=== PATIENT | male | born 1980 | race American Indian/Alaskan Native ===

== ENCOUNTER 2022-01-31 18:01 | Emergency (ER) | payer SELFPAY ==
[2022-01-31] MEDS ORDERED: cloNIDine 0.1 MG TAB PO ONE (18:29)
[2022-01-31] MEDS ORDERED: hydrALAZINE 20 MG/1 ML INJ IV ONE (22:20)
--- NOTE | 2022-02-01 01:41 | Emergency Department Report ---
ED ENT HPI - General Chief complaint: Nosebleed Stated complaint: NOSE BLEED/HTN Time Seen by Provider: 01/31/22 22:14 Source: patient, EMS Mode of arrival: Stretcher Limitations: No Limitations - History of Present Illness Initial comments: 41-year-old black male with a past medical history of hypertension and morbid obesity presents to the emergency department for evaluation of a nosebleed. He states that he sneezed really hard twice then started to have a nosebleed around 250 today. He states that his nose bled intermittently on 06/20/1929 and then it stopped. He states that even after the nosebleed he had a headache so he decided come to the emergency department for further evaluation. He denies chest pain, shortness of breath, nausea, vomiting, dizziness, and diaphoresis. MD complaint: epistaxis -: Sudden Location: other (Headache) Severity scale (0 -10): 4 Quality: aching Consistency: now resolved Associated Symptoms: denies: fever, cough, gum swelling, toothache, pain with swallowing, sore throat, tinnitus, hearing loss, discharge from ear, rhinorrhea - Related Data Allergies Allergy/AdvReac Type Severity Reaction Status Date / Time No Known Allergies Allergy Unverified 01/31/22 18:21 ED Dental HPI - General Chief complaint: Nosebleed Stated complaint: NOSE BLEED/HTN Time Seen by Provider: 01/31/22 22:14 Source: patient, EMS Mode of arrival: Stretcher Limitations: No Limitations - Related Data Allergies Allergy/AdvReac Type Severity Reaction Status Date / Time No Known Allergies Allergy Unverified 01/31/22 18:21 ED Review of Systems ROS: Stated complaint: NOSE BLEED/HTN Other details as noted in HPI Comment: All other systems reviewed and negative Constitutional: denies: chills, fever, malaise, weakness ENT: denies: congestion Respiratory: denies: shortness of breath Cardiovascular: denies: chest pain, palpitations, dyspnea on exertion, orthopnea, edema, syncope, paroxysmal nocturnal dyspnea Gastrointestinal: denies: abdominal pain, nausea, vomiting Musculoskeletal: denies: back pain Neurological: headache. denies: weakness ED Past Medical Hx - Past Medical History Hx Hypertension: Yes Hx Diabetes: Yes - Surgical History Additional Surgical History: neck, L foot, L leg ED Physical Exam - General Limitations: No Limitations General appearance: alert, in no apparent distress - Head Head exam: Present: atraumatic, normocephalic - Eye Eye exam: Present: normal appearance. Absent: conjunctival injection, periorbital swelling, periorbital tenderness - ENT ENT exam: Present: normal orophraynx, mucous membranes moist, other (No epistaxis noted.). Absent: normal exam (Bilateral nasal mucosal edema) - Neck Neck exam: Present: normal inspection. Absent: tenderness, lymphadenopathy - Respiratory Respiratory exam: Present: normal lung sounds bilaterally. Absent: respiratory distress, wheezes, rales, rhonchi, stridor, chest wall tenderness - Cardiovascular Cardiovascular Exam: Present: regular rate, normal heart sounds - GI/Abdominal GI/Abdominal exam: Present: soft, normal bowel sounds. Absent: distended, tenderness, guarding, rebound, rigid - Extremities Exam Extremities exam: Present: normal inspection, full ROM, normal capillary refill. Absent: tenderness, pedal edema, joint swelling, calf tenderness - Back Exam Back exam: Present: normal inspection. Absent: CVA tenderness (R), CVA tenderness (L) - Neurological Exam Neurological exam: Present: alert, CN II-XII intact, normal gait, reflexes normal. Absent: motor sensory deficit - Psychiatric Psychiatric exam: Present: normal affect, normal mood - Skin Skin exam: Present: warm, dry, intact, normal color ED Course Vital Signs 01/31/22 01/31/22 01/31/22 18:09 18:36 22:09 Temperature 97.7 F Pulse Rate 99 H 88 83 Respiratory 18 12 Rate Blood Pressure 210/110 Blood Pressure 226/111 222/115 [Left] O2 Sat by Pulse 97 100 Oximetry 01/31/22 02/01/22 02/01/22 23:22 00:15 00:33 Temperature Pulse Rate 94 H Respiratory 14 Rate Blood Pressure 222/115 191/102 Blood Pressure 191/102 [Left] O2 Sat by Pulse 99 Oximetry 02/01/22 01:21 Temperature Pulse Rate 84 Respiratory 14 Rate Blood Pressure Blood Pressure 196/110 [Left] O2 Sat by Pulse 100 Oximetry - Reevaluation(s) Reevaluation #1: 02/01/22 01:40 Blood pressure only minimally improved. Nosebleed and headache resolved. Patient states that he takes lisinopril and HCTZ at home but does not check his blood pressure. He states that he plans to follow-up with his primary care provider on Wednesday for further evaluation and management of elevated BP and is ready to be discharged. ED Medical Decision Making - Medical Decision Making 41-year-old black male with a past medical history of hypertension and morbid obesity presents to the emergency department for evaluation of a nosebleed. He states that he sneezed really hard twice then started to have a nosebleed around 250 today. He states that his nose bled intermittently on 06/20/1929 and then it stopped. He states that even after the nosebleed he had a headache so he decided come to the emergency department for further evaluation. He denies chest pain, shortness of breath, nausea, vomiting, dizziness, and diaphoresis. Physical exam unremarkable. Nosebleed likely secondary to elevated blood pressure. Blood pressure minimally improved. Patient will be discharged home and advised to monitor blood pressure closely over the next day or 2 and follow- up with his primary care provider on Wednesday for further evaluation and management and return to the emergency department as needed and if he develops any chest pain, shortness of breath, nausea, vomiting, dizziness, diaphoresis, and repeat nosebleed. He verbalizes understanding of and agreement with plan of care. Critical care attestation.: If time is entered above; I have spent that time in minutes in the direct care of this critically ill patient, excluding procedure time. ED Disposition Clinical Impression: Nosebleed, Elevated systolic blood pressure reading with diagnosis of hypertension Disposition: HOME / SELF CARE / HOMELESS Is pt being admited?: No Does the pt Need Aspirin: No Condition: Stable Instructions: Hypertension (ED), Hypertension, Adult, [id number], Nosebleed, [id number], Managing Your Hypertension, Form - Blood Pressure Record Sheet Additional Instructions: Monitor blood pressure closely over the next 2 days, record numbers, and follow- up with your primary care provider on Wednesday for further evaluation and management. Return to the emergency department immediately if you develop chest pain, shortness of breath, nausea, vomiting, dizziness, sweating, or repeat nosebleed. Referrals: TAD NEVAREZ MD [Staff Physician] - 3-5 Days Forms: Work/School Release Form(ED) Time of Disposition: 01:44
[2022-02-01] MEDS ORDERED: cloNIDine 0.2 MG TAB PO ONE (01:47)
[2022-02-01 01:56] VITALS: BP 180/93
== END 2022-02-01 01:58 | disposition home or self-care (01) ==
LOC: ED 18:01
DX: R04.0 Epistaxis (principal); I10 Essential (primary) hypertension; E11.9 Type 2 diabetes mellitus without complications
CPT/HCPCS: 96374; 96375; 99283; J0360; J3490